=== PATIENT | female | born 2000 | race Caucasian/White ===

== ENCOUNTER → 2022-06-07 | Outpatient (CLI) | payer OTHER | LOC: M WUC 11:55 | PROVIDERS: ATTEND Physician Assistant | DX: S63.512A Sprain of carpal joint of left wrist, initial encounter (principal); S63.8X2A Sprain of other part of left wrist and hand, initial encounter; X58.XXXA Exposure to other specified factors, initial encounter; Y92.9 Unspecified place or not applicable; Y93.9 Activity, unspecified; Y99.9 Unspecified external cause status ==